=== PATIENT | female | born 1975 | race Caucasian/White ===

== ENCOUNTER 2023-05-05 14:32 | Outpatient (CLI) | payer OTHER | END 2023-05-05 14:33 | disposition home or self-care (01) | LOC: NAV RAD 14:32 | PROVIDERS: ATTEND Family Medicine | DX: M47.22 Other spondylosis with radiculopathy, cervical region (principal); M25.512 Pain in left shoulder; M25.511 Pain in right shoulder | CPT/HCPCS: 72040 ==

== ENCOUNTER 2024-01-22 14:42 | Outpatient (CLI) | payer OTHER | END 2024-01-22 14:43 | disposition home or self-care (01) | LOC: NAV RAD 14:42 | PROVIDERS: ATTEND Physician Assistant | DX: M50.30 Other cervical disc degeneration, unspecified cervical region (principal); M47.812 Spondylosis without myelopathy or radiculopathy, cervical region; Z98.1 Arthrodesis status | CPT/HCPCS: 72040 ==